=== PATIENT | female | born 1960 ===

== ENCOUNTER 2017-10-13 01:58 | Observation (INO) ==
[2017-10-13] MEDS ORDERED: ACETAMINOPHEN 325 MG TABLET PO PRN (04:15)
[2017-10-13] MEDS ORDERED: ONDANSETRON 4 MG/2 ML VIAL IV PRN (04:15)
[2017-10-13] MEDS ORDERED: MORPHINE 4 MG/1 ML VIAL IM PRN (04:32)
[2017-10-13] MEDS ORDERED: NITROGLYCERIN SL 0.4 MG TABLET SL PRN (04:34)
[2017-10-13] MEDS ORDERED: GLUCAGON 1 MG VIAL IM PRN (04:35)
[2017-10-13] MEDS ORDERED: DEXTROSE 50% 25 GM/50 ML VIAL IV PRN (04:35)
[2017-10-13 04:43] LABS: Basophils % 0.2 % (0.0-0.8); Eosinophils # 0.1 10*3/uL (0.0-0.87); Eosinophils % 2.2 % (0.00-10.9); Hematocrit 37.5 VOL% (35.7-47.0); Immature Granulocytes % 0.3 %; Immature Granulocytes Absolute 0.02 #; Lymphocytes # 1.8 10*3/uL (1.4-4.0); Lymphocytes % 30.2 % (21.3-54.2); Mean Corpuscular HGB Conc 34.7 GM/DL (32-36); Mean Corpuscular Hemoglobin 32 PG (27-34); Mean Corpuscular Volume 91.9 FL (87-102); Mean Platelet Volume 9.7 FL (9.6-12.0); Monocytes # 0.7 10*3/uL (0.11-0.8); Monocytes % 11.1 % (1.7-12.7); Neutrophils # 3.4 10*3/uL (1.4-7.4); Platelet Count 190 T/CUMM (130-400); Red Blood Count 4.08 MC/CUMM (3.8-5.5); Red Cell Distribution Width 11.7 % (9.3-17.3)
[2017-10-13 04:50] LABS: INR 1.1; PT Patient Result 11.4 SECS; Partial Thromboplastin Time 26.6 SECS (0-40)
[2017-10-13 05:08] LABS: Albumin 3.3 G/DL (3.4-5.0); Bilirubin,Total 0.7 MG/DL (0.2-1.0); Osmolality,Calculated 287.7 MOS/KG (273-304); Potassium 3.5 MMOL/L (3.5-5.1); Total Protein 6.5 G/DL (6.4-8.3)
[2017-10-13 05:09] LABS: Risk Ratio 2.36; Thyroid Stimulating Hormone 3.48 uIU/ml (0.358-3.74); VLDL CHOLESTEROL 11.2 MG/DL
[2017-10-13] MEDS: PANTOPRAZOLE 40 MG TABLET PO SCH (10:54)
[2017-10-13] MEDS: FAMOTIDINE 20 MG TABLET PO SCH ×2 (10:54→20:56)
[2017-10-13] MEDS: ASPIRIN EC 81 MG TABLET PO SCH (10:54)
[2017-10-13] MEDS: ENOXAPARIN 40 MG/0.4 ML SYRINGE SUBCUT SCH (10:55)
[2017-10-13] MEDS: INSULIN LISPRO 100 UNIT/ML SUBCUT SCH ×4 (10:55→20:59)
[2017-10-13] MEDS ORDERED: MAGNESIUM SULF RIDER 2 GM in PREMIX 1 EACH IV PRN (16:53)
[2017-10-13] MEDS ORDERED: POTASSIUM CHLORIDE RIDER 10 MEQ in PREMIX 1 EACH IV PRN (16:53)
[2017-10-13] MEDS: SODIUM CHLORIDE 0.9% 1,000 ML IV SCH (19:05)
[2017-10-13] MEDS: PRAVASTATIN 20 MG TABLET PO SCH (20:56)
[2017-10-13] MEDS: traZODone 50 MG TABLET PO PRN (23:10)
[2017-10-14] MEDS: SODIUM CHLORIDE 0.9% 1,000 ML IV SCH ×2 (02:48→19:55)
[2017-10-14] MEDS ORDERED: DIAZEPAM 5 MG TABLET PO ONE (05:00)
[2017-10-14] MEDS ORDERED: diphenhydrAMINE CAP 25 MG CAPSULE PO ONE (05:00)
[2017-10-14] MEDS: ASPIRIN EC 81 MG TABLET PO SCH (08:06)
[2017-10-14] MEDS: PANTOPRAZOLE 40 MG TABLET PO SCH (08:06)
[2017-10-14] MEDS: FAMOTIDINE 20 MG TABLET PO SCH ×2 (08:06→21:44)
[2017-10-14] MEDS: ENOXAPARIN 40 MG/0.4 ML SYRINGE SUBCUT SCH (08:08)
[2017-10-14] MEDS: INSULIN LISPRO 100 UNIT/ML SUBCUT SCH ×3 (08:10→22:55)
[2017-10-14] MEDS ORDERED: LIDOCAINE 1% 20 ML VIAL ONE (08:13)
[2017-10-14] MEDS ORDERED: HEPARIN/NACL 0.9% 2 UNITS/ML 1,000 ML IV ONE (08:13)
[2017-10-14] MEDS ORDERED: HYDROmorphone 2 MG/1 ML VIAL ONE (08:20)
[2017-10-14] MEDS ORDERED: MIDAZOLAM 2 MG/2 ML VIAL ONE (08:21)
[2017-10-14] MEDS: PRAVASTATIN 20 MG TABLET PO SCH (21:44)
[2017-10-14] MEDS: traZODone 50 MG TABLET PO PRN (21:45)
[2017-10-14] MEDS ORDERED: DOCUSATE SODIUM 100 MG CAPSULE PO PRN (21:55)
[2017-10-15 03:28] LABS: Calcium 8.4 MG/DL (8.5-10.1); Osmolality,Calculated 284.8 MOS/KG (273-304); Potassium 3.9 MMOL/L (3.5-5.1)
[2017-10-15] MEDS: SODIUM CHLORIDE 0.9% 1,000 ML IV SCH ×3 (05:15→09:07)
[2017-10-15] MEDS: INSULIN LISPRO 100 UNIT/ML SUBCUT SCH ×2 (08:01→12:14)
[2017-10-15] MEDS: FAMOTIDINE 20 MG TABLET PO SCH (09:07)
[2017-10-15] MEDS: PANTOPRAZOLE 40 MG TABLET PO SCH (09:07)
[2017-10-15 11:47] VITALS: BP 136/65
[2017-10-15] MEDS ORDERED: PNEUMOCOCCAL VACCINE (23 VALENT) 0.5 ML VIAL IM ONE (12:25)
== END 2017-10-15 15:22 | disposition home or self-care (01) ==
LOC: N.TELES → SUATTDRO 04:00 → INTOOBSV 04:00 → OBSVTOIN 04:24
PROVIDERS: ADMIT Hospitalist; ATTEND Internal Medicine
PROC: CLCCHCL (ICD-10-PCS; 2017-10-14 09:15)

== ENCOUNTER 2018-07-02 18:15 | Inpatient (IN) ==
[2018-07-02] MEDS ORDERED: DIPH/TET/ACEL PERT BOOSTER VACCINE 0.5 ML VIAL IM ONE (18:43)
[2018-07-02] MEDS ORDERED: LACTATED RINGERS 1,000 ML IV STA (18:43)
[2018-07-02] MEDS ORDERED: ONDANSETRON 4 MG/2 ML VIAL IV STA ×2 (18:43→23:53)
[2018-07-02 19:00] LABS: Basophils % 0.4 % (0.0-0.8); Eosinophils % 0.4 % (0.00-10.9); Hematocrit 36.5 VOL% (35.7-47.0); Hemoglobin 12.1 GM/DL (12.0-16.0); Immature Granulocytes % 0.7 %; Immature Granulocytes Absolute 0.07 #; Lymphocytes # 0.8 10*3/uL (1.4-4.0); Lymphocytes % 7.9 % (21.3-54.2); Mean Corpuscular HGB Conc 33.2 GM/DL (32-36); Mean Corpuscular Volume 95.1 FL (87-102); Mean Platelet Volume 9.3 FL (9.6-12.0); Monocytes % 4.4 % (1.7-12.7); Neutrophils % 86.2 % (38.7-73.9); Platelet Count 189 T/CUMM (130-400); Red Blood Count 3.84 MC/CUMM (3.8-5.5); Red Cell Distribution Width 12.4 % (9.3-17.3); White Blood Count 10.6 T/CUMM (4-12)
[2018-07-02 19:12] LABS: Partial Thromboplastin Time 25.4 SECS (0-40)
[2018-07-02 19:21] LABS: Alanine Aminotransferase 92 U/L (13-56); Albumin 3.4 G/DL (3.4-5.0); Alkaline Phosphatase 114 U/L (45-117); Amylase 95 U/L (25-115); Aspartate Amino Transferase 94 U/L (0-37); Bilirubin,Total < 0.39 MG/DL (0.2-1.0); Blood Urea Nitrogen 13 MG/DL (7-18); Calcium 8.4 MG/DL (8.5-10.1); Glucose 101 MG/DL (74-106); Osmolality,Calculated 276.5 MOS/KG (273-304); Total Protein 6.8 G/DL (6.4-8.3)
[2018-07-02 20:08] LABS: ABG Base Excess -3.7 MMOL/L (-2.5-2.5); ABG HCO3 21.3 MMOL/L (20-26); ABG Oxygen Saturation 95.7 % (95-100); ABG PCO2 38.8 MM HG (35-48); ABG PH 7.351 (7.35-7.45); ABG PO2 81.8 MM HG (80-95); ABG TCO2 19.3 MMOL/L (23-27); Allen Test Positive; Pt O2 Delivery Device Room Air
[2018-07-02 21:10] LABS: Apearance,Urine CLEAR (Clear); Bacteria,Urine Occasional /HPF (Few); Bilirubin,Urine Negative (Negative); Blood, Urine Small mg/dL (Negative); Glucose,Urine (UA) Negative (Negative); Ketones,Urine Negative (Negative); Mucus,Urine Occasional /LPF (Occasional); Nitrite,Urine Negative (Negative); Protein,Urine Negative; RBC,Urine 2 /HPF (0-4); Squamous Epithelial Cell,Urine Occasional /HPF (0-10); Urine Color Colorless (Yellow); Urine Urobilinogen < 2.0 EU/DL (0.2-1.0); WBC,Urine 12 /HPF (0-6)
[2018-07-02 21:28] LABS: Barbiturates Screen,Urine Negative (Negative); Benzodiazepines Screen,Urine Negative (Negative); Cannabinoid Screen,Urine Negative (Negative); Opiate Screen,Urine Negative (Negative); Phencyclidine Screen,Urine Negative (Negative)
[2018-07-02] MEDS ORDERED: HYDROmorphone 2 MG/1 ML VIAL IV STA (23:52)
[2018-07-03] MEDS ORDERED: ONDANSETRON 4 MG/2 ML VIAL IV PRN (01:22)
[2018-07-03] MEDS ORDERED: HYDROmorphone 2 MG/1 ML VIAL IV PRN (01:22)
[2018-07-03] MEDS ORDERED: DEXTROSE 50% 25 GM/50 ML SYRINGE IV PRN (01:22)
[2018-07-03] MEDS ORDERED: ALBUTEROL/IPRATROPIUM 3 ML NEB RESP TX PRN (01:22)
[2018-07-03] MEDS ORDERED: GLUCAGON 1 MG VIAL IM PRN (01:22)
[2018-07-03] MEDS ORDERED: SODIUM CHLORIDE 0.9% 1,000 ML IV SCH (01:22)
[2018-07-03] MEDS ORDERED: MECLIZINE 25 MG TABLET PO PRN (01:22)
[2018-07-03] MEDS ORDERED: ACETAMINOPHEN 325 MG TABLET PO PRN (01:22)
[2018-07-03] MEDS: INSULIN REGULAR 100 UNIT/ML SUBCUT SCH ×4 (01:30→18:01)
[2018-07-03 04:55] LABS: Basophils % 0.2 % (0.0-0.8); Hematocrit 31.6 VOL% (35.7-47.0); Hemoglobin 10.7 GM/DL (12.0-16.0); Immature Granulocytes % 0.4 %; Immature Granulocytes Absolute 0.05 #; Lymphocytes # 0.6 10*3/uL (1.4-4.0); Lymphocytes % 4.9 % (21.3-54.2); Mean Corpuscular HGB Conc 33.9 GM/DL (32-36); Mean Corpuscular Volume 93.2 FL (87-102); Monocytes % 7.4 % (1.7-12.7); Neutrophils % 87.1 % (38.7-73.9); Platelet Count 178 T/CUMM (130-400); Red Blood Count 3.39 MC/CUMM (3.8-5.5); Red Cell Distribution Width 12.4 % (9.3-17.3); White Blood Count 11.3 T/CUMM (4-12)
[2018-07-03 05:24] LABS: Albumin 3.3 G/DL (3.4-5.0); Bilirubin,Total 0.8 MG/DL (0.2-1.0); Calcium 8.3 MG/DL (8.5-10.1); Osmolality,Calculated 278.7 MOS/KG (273-304); Total Protein 6.2 G/DL (6.4-8.3)
[2018-07-03 05:45] LABS: Band Neutrophils 3 % (0-10); Lymphocytes 4 % (20-55); Segmented Neutrophils 90 % (50-85)
[2018-07-03 05:46] LABS: Platelet Estimate Adequate; Total Cells Counted 100
[2018-07-03] MEDS: metFORMIN 500 MG TABLET PO SCH ×2 (08:36→16:54)
[2018-07-03] MEDS: FAMOTIDINE 20 MG TABLET PO SCH ×2 (08:36→21:06)
[2018-07-03] MEDS: sitaGLIPtin 100 MG TABLET PO SCH (08:36)
[2018-07-03] MEDS: ASPIRIN CHEW 81 MG TABLET PO SCH (08:37)
[2018-07-03] MEDS: PANTOPRAZOLE 40 MG VIAL IV SCH (08:37)
[2018-07-03] MEDS ORDERED: HYDROmorphone 2 MG/1 ML VIAL IM PRN ×2 (10:42)
[2018-07-03] MEDS: ALBUTEROL/IPRATROPIUM 3 ML NEB RESP TX SCH ×2 (13:19→19:39)
[2018-07-03] MEDS: SIMVASTATIN 10 MG TABLET PO SCH (21:05)
[2018-07-04] MEDS: INSULIN REGULAR 100 UNIT/ML SUBCUT SCH ×4 (01:05→17:54)
[2018-07-04] MEDS: ALBUTEROL/IPRATROPIUM 3 ML NEB RESP TX SCH ×4 (01:13→20:13)
[2018-07-04 05:29] LABS: Basophils % 0.1 % (0.0-0.8); Eosinophils % 0.4 % (0.00-10.9); Hematocrit 30.4 VOL% (35.7-47.0); Hemoglobin 9.8 GM/DL (12.0-16.0); Immature Granulocytes % 0.4 %; Immature Granulocytes Absolute 0.03 #; Lymphocytes # 1.2 10*3/uL (1.4-4.0); Lymphocytes % 18.4 % (21.3-54.2); Mean Corpuscular HGB Conc 32.2 GM/DL (32-36); Mean Corpuscular Volume 97.4 FL (87-102); Mean Platelet Volume 10.1 FL (9.6-12.0); Monocytes % 11.1 % (1.7-12.7); Neutrophils % 69.6 % (38.7-73.9); Platelet Count 134 T/CUMM (130-400); Red Blood Count 3.12 MC/CUMM (3.8-5.5); Red Cell Distribution Width 12.9 % (9.3-17.3); White Blood Count 6.7 T/CUMM (4-12)
[2018-07-04 05:58] LABS: Calcium 8.1 MG/DL (8.5-10.1); Osmolality,Calculated 283.3 MOS/KG (273-304)
[2018-07-04] MEDS: PANTOPRAZOLE 40 MG VIAL IV SCH (08:52)
[2018-07-04] MEDS: sitaGLIPtin 100 MG TABLET PO SCH (08:52)
[2018-07-04] MEDS: FAMOTIDINE 20 MG TABLET PO SCH ×2 (08:52→20:47)
[2018-07-04] MEDS: metFORMIN 500 MG TABLET PO SCH ×2 (08:52→16:56)
[2018-07-04] MEDS: ASPIRIN CHEW 81 MG TABLET PO SCH (08:52)
[2018-07-04] MEDS ORDERED: LIDOCAINE 1%/EPI INJ 20 ML VIAL ONE (12:13)
[2018-07-04] MEDS: SIMVASTATIN 10 MG TABLET PO SCH (20:47)
[2018-07-05] MEDS: INSULIN REGULAR 100 UNIT/ML SUBCUT SCH ×4 (00:12→18:04)
[2018-07-05] MEDS: ALBUTEROL/IPRATROPIUM 3 ML NEB RESP TX SCH ×4 (00:45→19:45)
[2018-07-05] MEDS: ASPIRIN CHEW 81 MG TABLET PO SCH (08:56)
[2018-07-05] MEDS: sitaGLIPtin 100 MG TABLET PO SCH (08:56)
[2018-07-05] MEDS: metFORMIN 500 MG TABLET PO SCH ×2 (08:56→17:12)
[2018-07-05] MEDS: FAMOTIDINE 20 MG TABLET PO SCH ×2 (08:56→20:34)
[2018-07-05] MEDS: PANTOPRAZOLE 40 MG TABLET PO SCH (12:28)
[2018-07-05] MEDS: PANTOPRAZOLE 40 MG VIAL IV SCH (14:55)
[2018-07-05] MEDS: SIMVASTATIN 10 MG TABLET PO SCH (20:34)
[2018-07-06] MEDS: INSULIN REGULAR 100 UNIT/ML SUBCUT SCH ×5 (00:57→23:55)
[2018-07-06] MEDS: ALBUTEROL/IPRATROPIUM 3 ML NEB RESP TX SCH ×5 (01:10→19:35)
[2018-07-06] MEDS: metFORMIN 500 MG TABLET PO SCH ×2 (08:48→17:19)
[2018-07-06] MEDS: PANTOPRAZOLE 40 MG TABLET PO SCH (08:48)
[2018-07-06] MEDS: FAMOTIDINE 20 MG TABLET PO SCH ×2 (08:48→21:14)
[2018-07-06] MEDS: sitaGLIPtin 100 MG TABLET PO SCH (08:49)
[2018-07-06] MEDS: ASPIRIN CHEW 81 MG TABLET PO SCH (08:49)
[2018-07-06] MEDS: SIMVASTATIN 10 MG TABLET PO SCH (21:14)
[2018-07-07] MEDS: ALBUTEROL/IPRATROPIUM 3 ML NEB RESP TX SCH ×4 (01:11→19:58)
[2018-07-07] MEDS: INSULIN REGULAR 100 UNIT/ML SUBCUT SCH ×4 (07:18→23:50)
[2018-07-07] MEDS: FAMOTIDINE 20 MG TABLET PO SCH ×2 (08:34→21:56)
[2018-07-07] MEDS: metFORMIN 500 MG TABLET PO SCH ×2 (08:34→16:51)
[2018-07-07] MEDS: sitaGLIPtin 100 MG TABLET PO SCH (08:34)
[2018-07-07] MEDS: PANTOPRAZOLE 40 MG TABLET PO SCH (08:34)
[2018-07-07] MEDS: ASPIRIN CHEW 81 MG TABLET PO SCH (08:34)
[2018-07-07] MEDS: SIMVASTATIN 10 MG TABLET PO SCH (21:56)
[2018-07-08] MEDS: ALBUTEROL/IPRATROPIUM 3 ML NEB RESP TX SCH ×2 (01:41→07:17)
[2018-07-08] MEDS: INSULIN REGULAR 100 UNIT/ML SUBCUT SCH (06:02)
[2018-07-08 07:31] VITALS: BP 137/71
[2018-07-08] MEDS: metFORMIN 500 MG TABLET PO SCH (08:37)
[2018-07-08] MEDS: sitaGLIPtin 100 MG TABLET PO SCH (08:38)
[2018-07-08] MEDS: ASPIRIN CHEW 81 MG TABLET PO SCH (08:38)
[2018-07-08] MEDS: FAMOTIDINE 20 MG TABLET PO SCH (08:38)
[2018-07-08] MEDS: PANTOPRAZOLE 40 MG TABLET PO SCH (08:38)
[2018-07-09] MEDS ORDERED: ERGOCALCIFEROL 50,000 UNIT CAPSULE PO SCH (09:00)
== END 2018-07-08 10:58 | disposition home or self-care (01) | DRG 200 ==
LOC: EDBD → EDUNIT# → N.ED 18:15 → N.EDINP 22:40 → N.3E 07-03 00:56
PROVIDERS: ADMIT Surgery; ATTEND Surgery